=== PATIENT | female | born 1970 | race Two or more races ===

== ENCOUNTER 2021-02-17 22:06 | Inpatient (IN) | payer MEDICAID ==
[~2021-02-17] VITALS: Ht 30.5 cm; Wt 92.0 kg
[2021-02-17 22:00] VITALS: BP 138/81
[2021-02-17 22:30] VITALS: BP 138/81
[2021-02-17] MEDS ORDERED: METOPROLOL SUCCINATE XL 50 MG TAB PO ONE (22:45)
[2021-02-17] MEDS ORDERED: MORPHINE SULF INJ 2 MG/ML SYRINGE 1ML IV PRN (22:45)
[2021-02-17] MEDS ORDERED: NITROGLYCERIN 0.4 MG SL TAB SL PRN (22:45)
[2021-02-17] MEDS ORDERED: HEPARIN DRIP/D5W 100UNITS/ML 250 ML IV SCH (23:15)
[2021-02-17] MEDS ORDERED: ZOLPIDEM TARTRATE 5 MG TAB PO PRN (23:15)
[2021-02-17 23:40] LABS: Basophils # (auto) 0.1 10 ^3/uL (0-0.2); Eosinophils # (auto) 0.2 10 ^3/uL (0-0.8); Eosinophils % (auto) 2.2 % (0.0-7.0); Hematocrit 45.1 % (36.0-46.0); Hemoglobin 15.3 g/dL (12.2-16.2); Lymphocytes # (auto) 2.4 10 ^3/uL (0.4-5.4); Lymphocytes % (auto) 29.6 % (10.0-50.0); Mean Corpuscular Hemoglobin 30.8 pg (28.0-32.0); Mean Corpuscular Volume 90.7 fL (80.0-100.0); Monocytes # (auto) 0.6 10 ^3/uL (0-1.3); Neutrophils # (auto) 4.9 10 ^3/uL (1.6-8.6); Neutrophils % (auto) 60.2 % (37.0-80.0); Nucleated Red Blood Cells % 0.1 %; Platelet Count (auto) 226 10^3/uL (140-450); Red Blood Cells 4.97 10^6/uL (4.0-5.20); White Blood Cell 8.1 10^3/uL (4.4-10.8)
[2021-02-17] MEDS ORDERED: ATORVASTATIN 20 MG TAB PO SCH (23:47)
[2021-02-17 23:59] LABS: INR 1.01 (0.9-1.15)
[2021-02-18] MEDS ORDERED: hydrALAZINE HCL 20 MG/ML VL IV PRN
[2021-02-18] MEDS ORDERED: DEXTROSE (50%) 50ML SYRG IV PRN
[2021-02-18] MEDS ORDERED: HEPARIN DRIP/D5W 100UNITS/ML 250 ML IV ONE (00:04)
[2021-02-18] MEDS: HEPARIN DRIP/D5W 100UNITS/ML 250 ML IV SCH ×2 (00:15→22:20)
[2021-02-18 05:00] VITALS: BP 113/71
[2021-02-18 05:36] LABS: Basophils # (auto) 0 10 ^3/uL (0-0.2); Basophils % (auto) 0.5 % (0.0-2.0); Eosinophils # (auto) 0.2 10 ^3/uL (0-0.8); Eosinophils % (auto) 2.1 % (0.0-7.0); Hematocrit 46.2 % (36.0-46.0); Hemoglobin 15.7 g/dL (12.2-16.2); Lymphocytes # (auto) 2.4 10 ^3/uL (0.4-5.4); Lymphocytes % (auto) 29.7 % (10.0-50.0); Mean Corpuscular Hgb Conc. 34.1 g/dL (32.0-36.0); Monocytes # (auto) 0.6 10 ^3/uL (0-1.3); Monocytes % (auto) 7.2 % (0.0-12.0); Neutrophils % (auto) 60.5 % (37.0-80.0); Nucleated Red Blood Cells % 0.1 %; Platelet Count (auto) 224 10^3/uL (140-450); Red Blood Cells 5.08 10^6/uL (4.0-5.20); White Blood Cell 8.2 10^3/uL (4.4-10.8)
[2021-02-18 05:58] LABS: Albumin 3.1 g/dL (3.4-5.0); Potassium 3.8 mmol/L (3.5-5.1)
[2021-02-18 06:05] LABS: BUN/Creatinine Ratio 24.4; Bilirubin, Total 0.6 mg/dL (0.2-1.0); Total Protein 6.7 g/dL (6.4-8.2)
[2021-02-18] MEDS: ACCU-CHEK COMFORT CURVE STRIP VI SCH ×4 (06:43→22:13)
[2021-02-18] MEDS: InsuLIN REG 1unit/0.01ml Soln (100units/ml) SC SCH ×4 (06:50→23:08)
[2021-02-18 07:47] LABS: INR 1.04 (0.9-1.15); Partial Thromboplastin Time 33.9 sec (23.0-31.2)
[2021-02-18 08:00] VITALS: BP 108/69
[2021-02-18] MEDS ORDERED: ATORVASTATIN 20 MG TAB PO SCH ×3 (08:15→08:18)
[2021-02-18] MEDS ORDERED: HEPARIN SODIUM (PORCINE) 5000 UNITS/ML 1ML VIAL IV ONE (08:15)
[2021-02-18] MEDS ORDERED: TICAGRELOR 90 MG TAB PO ONE (08:15)
[2021-02-18] MEDS ORDERED: ASPirin 325 MG TAB PO ONE (08:15)
[2021-02-18 08:48] VITALS: BP 108/69
[2021-02-18] MEDS: CARVEDILOL 3.125 MG TAB PO SCH ×2 (09:22→23:07)
[2021-02-18] MEDS ORDERED: METOPROLOL SUCCINATE XL 50 MG TAB PO SCH (10:00)
[2021-02-18 13:00] VITALS: BP 109/68
[2021-02-18] MEDS: HYDROcodone-ACET 5/325MG TAB PO PRN (16:18)
[2021-02-18 16:26] VITALS: BP 106/66
[2021-02-18 16:53] LABS: INR 1.07 (0.9-1.15)
[2021-02-18 22:00] VITALS: BP 101/63
[2021-02-18 22:00] LABS: INR 1.06 (0.9-1.15); Partial Thromboplastin Time 46.4 sec (23.0-31.2)
[2021-02-18] MEDS: TICAGRELOR 90 MG TAB PO SCH (23:04)
[2021-02-18] MEDS: ATORVASTATIN 20 MG TAB PO SCH (23:04)
[2021-02-19 00:44] LABS: Urine Bacteria FEW /hpf (None Seen); Urine Blood Negative /uL (Negative); Urine Specific Gravity 1.021 (1.001-1.035); Urine WBC <1 /hpf (0 - 5)
[2021-02-19 05:00] VITALS: BP 121/76
[2021-02-19 05:20] LABS: Basophils # (auto) 0.1 10 ^3/uL (0-0.2); Basophils % (auto) 0.7 % (0.0-2.0); Eosinophils # (auto) 0.1 10 ^3/uL (0-0.8); Eosinophils % (auto) 1.6 % (0.0-7.0); Hematocrit 49.3 % (36.0-46.0); Hemoglobin 16.9 g/dL (12.2-16.2); Lymphocytes # (auto) 2.2 10 ^3/uL (0.4-5.4); Lymphocytes % (auto) 23.9 % (10.0-50.0); Mean Corpuscular Hemoglobin 31.1 pg (28.0-32.0); Mean Corpuscular Hgb Conc. 34.3 g/dL (32.0-36.0); Mean Corpuscular Volume 90.7 fL (80.0-100.0); Monocytes # (auto) 0.6 10 ^3/uL (0-1.3); Monocytes % (auto) 6.6 % (0.0-12.0); Neutrophils # (auto) 6.1 10 ^3/uL (1.6-8.6); Neutrophils % (auto) 67.2 % (37.0-80.0); Nucleated Red Blood Cells % 0.2 %; Platelet Count (auto) 278 10^3/uL (140-450); Red Blood Cells 5.44 10^6/uL (4.0-5.20); Red Cell Distribution Width 12.7 % (11.8-14.3)
[2021-02-19 05:35] LABS: INR 1.1 (0.9-1.15); Partial Thromboplastin Time 58.4 sec (23.0-31.2)
[2021-02-19] MEDS: ACCU-CHEK COMFORT CURVE STRIP VI SCH ×4 (06:41→22:02)
[2021-02-19] MEDS: InsuLIN REG 1unit/0.01ml Soln (100units/ml) SC SCH ×4 (06:57→22:03)
[2021-02-19 08:42] VITALS: BP 107/80
[2021-02-19] MEDS ORDERED: HEPARIN SODIUM (PORCINE) 5000 UNITS/ML 1ML VIAL ONE (09:42)
[2021-02-19] MEDS ORDERED: VERAPAMIL 2.5MG/ML INJ 2ML VIAL IV ONE (09:42)
[2021-02-19] MEDS ORDERED: fentaNYL CITRATE 100 MCG/2 ML VL ONE (09:43)
[2021-02-19] MEDS ORDERED: MIDAZOLAM HCL 1MG/1ML-2 ML VIAL ONE (09:43)
[2021-02-19] MEDS ORDERED: LIDOCAINE 2%HCL (LOCAL ANESTH.) INJ 20ML MDV ONE (09:43)
[2021-02-19] MEDS: TICAGRELOR 90 MG TAB PO SCH ×2 (10:00→22:00)
[2021-02-19] MEDS: ASPirin 81 mg TAB PO SCH (10:00)
[2021-02-19] MEDS ORDERED: IODIXANOL 320MG/ML 100ML BTL IV ONE (10:07)
[2021-02-19] MEDS ORDERED: ANGIOMAX 250 MG VIAL IV ONE (10:44)
[2021-02-19] MEDS ORDERED: SODIUM CHL 0.9% 50 ML ONE (10:44)
[2021-02-19] MEDS ORDERED: ASPirin 81 mg TAB ONE (11:00)
[2021-02-19] MEDS ORDERED: TICAGRELOR 90 MG TAB ONE (11:01)
[2021-02-19] MEDS: HYDROcodone-ACET 5/325MG TAB PO PRN (14:00)
[2021-02-19] MEDS: CARVEDILOL 3.125 MG TAB PO SCH ×2 (16:00→22:01)
[2021-02-19 17:00] VITALS: BP 109/74
[2021-02-19 22:00] VITALS: BP 117/71
[2021-02-19] MEDS: ATORVASTATIN 20 MG TAB PO SCH (22:02)
[2021-02-20] MEDS ORDERED: GABA400C11 PO (03:10)
[2021-02-20] MEDS ORDERED: MET25T PO (03:10)
[2021-02-20] MEDS ORDERED: ATOR20TA50 PO ×2 (03:10→11:29)
[2021-02-20 05:00] VITALS: BP 142/93
[2021-02-20 05:59] LABS: Basophils # (auto) 0 10 ^3/uL (0-0.2); Basophils % (auto) 0.5 % (0.0-2.0); Eosinophils # (auto) 0.1 10 ^3/uL (0-0.8); Eosinophils % (auto) 1.6 % (0.0-7.0); Hematocrit 48.5 % (36.0-46.0); Hemoglobin 16.7 g/dL (12.2-16.2); Lymphocytes # (auto) 1.9 10 ^3/uL (0.4-5.4); Lymphocytes % (auto) 21.8 % (10.0-50.0); Mean Corpuscular Hemoglobin 31.3 pg (28.0-32.0); Mean Corpuscular Hgb Conc. 34.3 g/dL (32.0-36.0); Mean Corpuscular Volume 91.2 fL (80.0-100.0); Monocytes # (auto) 0.7 10 ^3/uL (0-1.3); Neutrophils # (auto) 5.8 10 ^3/uL (1.6-8.6); Neutrophils % (auto) 68.1 % (37.0-80.0); Platelet Count (auto) 254 10^3/uL (140-450); Red Blood Cells 5.32 10^6/uL (4.0-5.20); Red Cell Distribution Width 12.8 % (11.8-14.3); White Blood Cell 8.6 10^3/uL (4.4-10.8)
[2021-02-20 06:22] LABS: Calcium 8.6 mg/dL (8.5-10.1); Potassium 3.8 mmol/L (3.5-5.1)
[2021-02-20 06:28] LABS: Albumin 3.2 g/dL (3.4-5.0); BUN/Creatinine Ratio 31.6; Bilirubin, Total 0.8 mg/dL (0.2-1.0)
[2021-02-20] MEDS: ACCU-CHEK COMFORT CURVE STRIP VI SCH ×2 (06:30→11:50)
[2021-02-20] MEDS: InsuLIN REG 1unit/0.01ml Soln (100units/ml) SC SCH ×2 (06:36→12:00)
[2021-02-20 06:41] LABS: Cholesterol 130 mg/dL (< 200)
[2021-02-20 06:44] LABS: HDL Cholesterol 35 mg/dL (40-59); LDL Cholesterol 81 mg/dL (< 100); Triglycerides 108 mg/dL (< 150)
[2021-02-20 09:00] VITALS: BP 127/81
[2021-02-20] MEDS: ASPirin 81 mg TAB PO SCH (10:34)
[2021-02-20] MEDS: CARVEDILOL 3.125 MG TAB PO SCH (10:35)
[2021-02-20] MEDS: TICAGRELOR 90 MG TAB PO SCH (10:36)
[2021-02-20] MEDS ORDERED: CAR3125T PO (11:29)
[2021-02-20] MEDS ORDERED: ASPI1CHW15 PO (11:29)
[2021-02-20] MEDS ORDERED: TICA90TA PO (11:29)
[2021-02-20 12:02] VITALS: BP 127/81
[2021-02-20 13:00] VITALS: BP 119/82
== END 2021-02-20 15:54 | disposition home or self-care (01) | DRG 175 ==
LOC: TELE-CENTR 22:06
PROVIDERS: ADMIT Specialist; ATTEND Specialist
PROC: 027034Z Dilation of Coronary Artery, One Artery with Drug-eluting Intraluminal Device, Percutaneous Approach (ICD-10-PCS; principal; 2021-02-19)
PROC: 4A023N7 Measurement of Cardiac Sampling and Pressure, Left Heart, Percutaneous Approach (ICD-10-PCS; 2021-02-19)
PROC: B211YZZ Fluoroscopy of Multiple Coronary Arteries using Other Contrast (ICD-10-PCS; 2021-02-19)
PROC: B215YZZ Fluoroscopy of Left Heart using Other Contrast (ICD-10-PCS; 2021-02-19)
PROC: 02703ZZ Dilation of Coronary Artery, One Artery, Percutaneous Approach (ICD-10-PCS; 2021-02-19)
DX: T82.855A Stenosis of coronary artery stent, initial encounter (principal); I24.9 Acute ischemic heart disease, unspecified; E11.9 Type 2 diabetes mellitus without complications; I25.10 Atherosclerotic heart disease of native coronary artery without angina pectoris; E66.9 Obesity, unspecified; E78.5 Hyperlipidemia, unspecified; Y83.1 Surgical operation with implant of artificial internal device as the cause of abnormal reaction of the patient, or of later complication, without mention of misadventure at the time of the procedure; F12.90 Cannabis use, unspecified, uncomplicated; I10 Essential (primary) hypertension; Z20.822 Contact with and (suspected) exposure to COVID-19; R11.0 Nausea; F15.90 Other stimulant use, unspecified, uncomplicated; F17.210 Nicotine dependence, cigarettes, uncomplicated; Z71.6 Tobacco abuse counseling; Z82.49 Family history of ischemic heart disease and other diseases of the circulatory system; Z95.5 Presence of coronary angioplasty implant and graft; Z91.19 Patient's noncompliance with other medical treatment and regimen; Y92.89 Other specified places as the place of occurrence of the external cause; Z68.38 Body mass index [BMI] 38.0-38.9, adult
CPT/HCPCS: 36415; 71046; 80053; 80061; 81001; 82962; 84443; 84484; 85025; 85610; 85730; 86850; 86900; 86901; 87426; 93005; 93306; 99152; 99153; C1874; G0378; J1815; J2250; Q9967

== ENCOUNTER → 2022-11-29 | Outpatient (CLI) | payer OTHER ==
[~2022-11-29] MED LIST: ASPI1CHW15 PO; ATOR20TA50 PO; CAR3125T PO; GABA400C11 PO; REGADENOSON 0.4 MG/5 ML SYRG IV ONE; TICA90TA PO
[2022-11-29 09:11] VITALS: BP 118/74
== END | disposition home or self-care (01) ==
LOC: XY 07:38
PROVIDERS: ATTEND Specialist
DX: I25.10 Atherosclerotic heart disease of native coronary artery without angina pectoris (principal); R06.02 Shortness of breath
CPT/HCPCS: 78452; 93017; A9500; J2785

== ENCOUNTER 2023-09-06 07:36 | Day surgery (SDC) | payer OTHER ==
[2023-09-06] VITALS (9 sets, daily range): BP systolic 82–120; BP diastolic 40–73; PULSE 52–62; RESP 11–17; TEMP 97.8; O2SAT 92–94
[~2023-09-06 07:36] MED LIST changes: +ASPI-736 PO; -ASPI1CHW15 PO; -CAR3125T PO; +ERTU15TA PO; +ESCI1TAB36 PO; +GABA-1250 PO; -GABA400C11 PO; +HYDR-5028 PO; +INSLISPI SC; +INSU1INJ19 SC; +KEP500T PO; +LISI2.5T47 PO; +METO-158 PO; +NITR0.4S29 SL; +RANO10003 PO; -REGADENOSON 0.4 MG/5 ML SYRG IV ONE; +SEMA2INJ3 SC
[2023-09-06] MEDS ORDERED: ATOR20TA PO (08:59)
[2023-09-06] MEDS ORDERED: ASPI1TAB19 PO (08:59)
[2023-09-06] MEDS ORDERED: TICA90TA PO (09:02)
[2023-09-06] MEDS ORDERED: MIDAZOLAM HCL 2MG/2ML 2ml VIAL (1mg/ml) ONE (09:41)
[2023-09-06] MEDS ORDERED: ANGIOMAX 250 MG VIAL IV ONE ×2 (09:41→10:53)
[2023-09-06] MEDS ORDERED: fentaNYL CITRATE 100 MCG/2 ML VL ONE (09:41)
[2023-09-06] MEDS ORDERED: SODIUM CHL 0.9% 50 ML ONE ×2 (09:41→10:53)
[2023-09-06] MEDS ORDERED: LIDOCAINE 2%HCL (LOCAL ANESTH.) INJ 20ML MDV ONE (09:42)
[2023-09-06] MEDS ORDERED: HEPARIN SODIUM (PORCINE) 5000 UNITS/ML 1ML VIAL ONE (09:42)
[2023-09-06] MEDS ORDERED: VERAPAMIL 2.5MG/ML INJ 2ML VIAL IV ONE (09:42)
[2023-09-06] MEDS ORDERED: IODIXANOL 320MG/ML 100ML BTL IV ONE ×2 (09:42→10:49)
[2023-09-06] MEDS ORDERED: TICAGRELOR 90 MG TAB ONE (11:03)
[2023-09-06] MEDS ORDERED: ASPirin 325 MG TAB ONE (11:03)
== END 2023-09-06 13:38 | disposition home or self-care (01) ==
LOC: CATH 07:36
PROVIDERS: ATTEND Internal Medicine Cardiovascular Disease
DX: I25.10 Atherosclerotic heart disease of native coronary artery without angina pectoris (principal); T82.855A Stenosis of coronary artery stent, initial encounter; Y83.8 Other surgical procedures as the cause of abnormal reaction of the patient, or of later complication, without mention of misadventure at the time of the procedure; I77.1 Stricture of artery; R06.09 Other forms of dyspnea; I10 Essential (primary) hypertension; E78.5 Hyperlipidemia, unspecified; E11.9 Type 2 diabetes mellitus without complications; F17.210 Nicotine dependence, cigarettes, uncomplicated; E66.01 Morbid (severe) obesity due to excess calories; I47.19 Other supraventricular tachycardia
CPT/HCPCS: 93458; C1725; C1769; C1874; C1887; C1894; C9600; J0583; J1644; J2250; J3010; Q9967; 99152

== ENCOUNTER 2024-10-02 06:54 | Day surgery (SDC) | payer MEDICAID, OTHER ==
[~2024-10-02] VITALS: Ht 157.5 cm; Wt 102.1 kg
[2024-10-02] VITALS (9 sets, daily range): BP systolic 96–118; BP diastolic 59–79; PULSE 60–66; RESP 12–18; TEMP 97.6; O2SAT 94–97
[~2024-10-02 06:54] MED LIST changes: +ALBU108A5 IN; -ASPI-736 PO; +ASPI1TAB19 PO; +ATOR20TA PO; -ATOR20TA50 PO; +BACL10TA PO; +EZET10TA22 PO; +FAMO-12 PO; +LORA-622 PO; +MAGN400T40 PO; +MECL-90 PO; +MONT-8 PO; +PANT40TA57 PO; +[UNRECOGNIZED DRUG - CODE]
[2024-10-02] MEDS ORDERED: IODIXANOL 320MG/ML 100ML BTL IV ONE ×2 (07:43→09:30)
[2024-10-02] MEDS ORDERED: HEPARIN IN NS 1000Units/500mL 0 ML ONE (07:43)
[2024-10-02] MEDS ORDERED: fentaNYL CITRATE 100 MCG/2 ML VL ONE (09:29)
[2024-10-02] MEDS ORDERED: SODIUM CHL 0.9% 50 ML ONE (09:29)
[2024-10-02] MEDS ORDERED: VERAPAMIL 2.5MG/ML INJ 2ML VIAL IV ONE (09:29)
[2024-10-02] MEDS ORDERED: HEPARIN SODIUM (PORCINE) 5000 UNITS/ML 1ML VIAL ONE (09:29)
[2024-10-02] MEDS ORDERED: ANGIOMAX 250 MG VIAL IV ONE (09:29)
[2024-10-02] MEDS ORDERED: MIDAZOLAM HCL 2MG/2ML 2ml VIAL (1mg/ml) ONE (09:29)
[2024-10-02] MEDS ORDERED: LIDOCAINE 2%HCL (LOCAL ANESTH.) INJ 20ML MDV ONE (09:43)
[2024-10-02] MEDS ORDERED: TICAGRELOR 90 MG TAB ONE (10:35)
[2024-10-02] MEDS ORDERED: ASPirin 325 MG TAB ONE (10:36)
--- NOTE | 2024-10-02 11:49 | DVHOP2 ---
Operative Report - 2 Report Details Date: 10/02/24 Preop Diagnosis: CAD Postop Diagnosis: s/p [facility] Surgeon: Grey English MD Anesthesiologist: Conscious sedation Anesthesia: Mac, Local Consent: The patient was informed of the risks and benefits of the procedure. These include but are not limited to complications of anesthesia, postoperative infection, incomplete relief of symptoms, recurrence of symptoms, damage to blood vessels, nerves and tendons, deep venous thrombosis, pulmonary embolism and possible need for repeat surgery in the future. Complications: No complications Estimated Blood Loss: 5 cc Findings: CAD Indications for Surgery: Chest pain Name of Procedure Performed Left heart catheterization, bilateral cine coronary angiography and left ventriculography with PTCA and stenting of the circumflex coronary Procedure Details Procedure Details: Prior local anesthesia with 2% lidocaine to the right wrist and full informed consent obtained patient was prepped and draped in usual fashion followed by placement of a six Uzbek sheath into the radial artery through which a David catheter was used for cannulation of right left coronary sinus and ventriculography. A 3-0 EBU guide was used for angioplasty of circumflex. No complications Hemodynamics: Aortic blood pressure was 100/50 end-diastolic pressure was six. There was no gradient across the valve on pullback. Coronary anatomy: The RCA is a large vessel it has been stented. There are two areas of InStent restenosis between stents and the vasculature. There is 30-40% stenosis mid and distal segments. PDA and posterolateral branches are normal. Left main is large and normal. Left anterior descending is a large vessel previous stenting shows no in stent restenosis. The circumflex is a large vessel it has a narrowing in its mid section with a significant stenosis of about 95+% at the level of an obtuse marginal branch. Ventriculography in the PAULINO projection shows an EF of about 55%. Fractional flow reserve evaluation was performed of the RCA showing an FFR of 0.89 consistent with nonsignificant disease. We opted to concentrate on the circumflex for which we placed a three five EBU guide as noted. We then placed a see on wire across the area of stenosis and placed a 2-0 balloon to a maximum inflation pressure of 10 atmospheres followed by a 225 x 15 mm stent across the area of stenosis in the circumflex. This was dilated to 0 proximally 10-15 atmospheres. There was some residual stenosis in the midportion of the circumflex since there does appear to be as much smaller vessel. There was good conformity of the stent within the vessel. No thrombus formation and/or dissection noted. Impression successful [employer] and stenting of the circumflex. Mild disease of the RCA. Normal ejection fraction. Normal end-diastolic pressures. Recommendations medical diabetes one to continue risk-factor modification. Condition Good Disposition Home Date of Service: Oct 02, 2024 Billing Provider: GREY ENGLISH Sr., MD Cardiology Common Codes: 05075-DHBVJII INP/OBS CARE (High) Peripheral Procedures Codes: 62468-[id number] W/IN SAME VESSEL, 84697-ZDBIS PLACMNT W/ANGIOPLASTY (PTCA and stenting of the circumflex. Left heart catheterization. Ventriculography. Fractional flow reserve evaluation of the RCA with a catheterization works program.) GREY ENGLISH Sr., MD Oct 02, 2024 11:49
== END 2024-10-02 14:46 | disposition home or self-care (01) ==
LOC: CATH 06:54
PROVIDERS: ATTEND Internal Medicine
DX: I25.10 Atherosclerotic heart disease of native coronary artery without angina pectoris (principal); T82.855A Stenosis of coronary artery stent, initial encounter; Y84.8 Other medical procedures as the cause of abnormal reaction of the patient, or of later complication, without mention of misadventure at the time of the procedure; Y92.89 Other specified places as the place of occurrence of the external cause; R93.1 Abnormal findings on diagnostic imaging of heart and coronary circulation; J44.9 Chronic obstructive pulmonary disease, unspecified; I27.20 Pulmonary hypertension, unspecified; Z79.4 Long term (current) use of insulin; Z79.82 Long term (current) use of aspirin; Z79.891 Long term (current) use of opiate analgesic; Z79.899 Other long term (current) drug therapy; Z88.5 Allergy status to narcotic agent; Z88.8 Allergy status to other drugs, medicaments and biological substances; Z82.49 Family history of ischemic heart disease and other diseases of the circulatory system; Z83.3 Family history of diabetes mellitus; Z84.89 Family history of other specified conditions
CPT/HCPCS: 75580; 92928; 93458; C1725; C1769; C1874; C1887; C1894; J0583; J1644; J2250; J3010; J7030; Q9967; 99152; 99153; C9600